=== PATIENT | female | born 1995 | race Caucasian/White ===

== ENCOUNTER 2017-12-01 18:58 | Emergency (ER) | payer MEDICAID ==
[~2017-12-01] VITALS: Ht 180.3 cm; Wt 112.5 kg
[2017-12-01 19:00] VITALS: Ht 180.3 cm; Wt 112.5 kg
[2017-12-01 22:45] LABS: BASOPHIL % 0.3 % (0-2); PLATELET COUNT 295 x10^3mcL (130-400)
[2017-12-01 22:48] LABS: RED CELL DISTRIBUTION WIDTH 16.4 % (11.5-14.5)
[2017-12-01 22:52] LABS: UA SPECIFIC GRAVITY >=1.030 (1.005-1.035); microscopic required? YES; urine erythrocyte NEGATIVE (NEGATIVE)
[2017-12-01 22:52] LABS: CARBON DIOXIDE 26.8 mmol/L (21-32); CHLORIDE SERUM 104 mmol/L (98-107); CREATININE SERUM 0.7 mg/dL (0.6-1.0); GFR1 > 60 mL/min; GLUCOSE SERUM 89 mg/dL (74-106); POTASSIUM SERUM 3.8 mmol/L (3.5-5.1); SODIUM SERUM 138 mmol/L (136-145)
[2017-12-01 22:55] LABS: ALBUMIN 3.8 g/dL (3.4-5.0); ALKALINE PHOSPHATASE 46 U/L (46-116); ALT/SGPT 30 U/L (14-59); AMYLASE 69 U/L (25-115); AST/SGOT 21 U/L (15-37); BILIRUBIN TOTAL 0.2 mg/dL (0.20-1.00); LIPASE 128 IU/L (73-393); TOTAL PROTEIN, SERUM 7.3 g/dL (6.4-8.2)
[2017-12-02 01:47] VITALS: BP 137/76
== END 2017-12-02 01:47 | disposition home or self-care (01) ==
LOC: ED 18:58
PROVIDERS: Specialist
DX: O23.41 Unspecified infection of urinary tract in pregnancy, first trimester (principal); O20.8 Other hemorrhage in early pregnancy; Z3A.01 Less than 8 weeks gestation of pregnancy; Z90.89 Acquired absence of other organs
CPT/HCPCS: 36415; 83880; Q0092